=== PATIENT | male | born 1950 | race American Indian/Alaskan Native ===

== ENCOUNTER 2022-08-05 09:54 | Inpatient (IN) | payer MEDICARE ==
[~2022-08-05] VITALS: Ht 177.8 cm; Wt 104.2 kg
[~2022-08-05 09:54] MED LIST: ECOT81TA5 PO; HEPARIN SOD (PORCINE) 5000UNITS/ML 1ML VIAL/SYRINGE SQ ONE; LIDOCAINE 2% 100MG/5ML SDV (FOR ANES.) As Ordered ONE; LISI40TA4 PO; MIDAZOLAM INJ 2MG/2ML VIAL (J2250 PER 1MG) As Ordered ONE; ONDANSETRON 4MG 2ML VIAL As Ordered ONE; ROCURONIUM BROMIDE 50 MG/5 ML VIAL As Ordered ONE; SEMA1PEN2 SQ; STOO240C PO; TAMS1CAP17 PO; ceFAZolin SOD 2 GM in IV 1 EA IV ONE; dexameTHASONE 4 MG/ML 1ML VIAL (J1100 PER 1MG) As Ordered ONE; fentaNYL 100 MCG/2 ML INJECTION As Ordered ONE; propofoL 200 MG/20 ML VIAL As Ordered ONE
[2022-08-05] MEDS ORDERED: LR 1,000 ML IV SCH ×2 (10:20→17:40)
[2022-08-05] MEDS ORDERED: SUGAMMADEX SODIUM 500 MG/5 ML VIAL (BRIDION) As Ordered ONE (11:04)
[2022-08-05] MEDS ORDERED: ACETAMINOPHEN TAB 650MG DOSE (2X325MG) PO PRN (12:00)
[2022-08-05] MEDS ORDERED: GLUCAGON INJ 1MG VIAL SC PRN (12:00)
[2022-08-05] MEDS ORDERED: GLUCOSE 4GM CHEW TABLET PO PRN (12:00)
[2022-08-05] MEDS ORDERED: DEXTROSE 50% 50 ML SYRINGE IV PRN (12:00)
[2022-08-05] MEDS: INSULIN LISPRO (NovoLOG) PER UNIT SC SCH ×2 (12:00→17:30)
[2022-08-05] MEDS ORDERED: ONDANSETRON 4MG 2ML VIAL IV PRN ×2 (12:00→17:40)
[2022-08-05] MEDS ORDERED: NS 1,000 ML IV SCH (12:00)
[2022-08-05] MEDS ORDERED: PERCOCET 5MG/325MG TAB PO PRN ×2 (12:00)
[2022-08-05] MEDS ORDERED: LIDOCAINE 1% SDV 30ML VIAL As Ordered ONE (12:00)
[2022-08-05] MEDS ORDERED: BUPIVACAINE HCL 0.25% 30ML VIAL As Ordered ONE (12:00)
[2022-08-05] MEDS ORDERED: fentaNYL 100 MCG/2 ML INJECTION As Ordered ONE ×2 (13:08→17:05)
[2022-08-05] MEDS ORDERED: VECURONIUM BROMIDE 10MG VIAL As Ordered ONE (13:25)
[2022-08-05] MEDS ORDERED: propofoL 200 MG/20 ML VIAL As Ordered ONE ×2 (15:21→16:49)
[2022-08-05] MEDS ORDERED: LIDOCAINE 2% 100MG/5ML SDV (FOR ANES.) As Ordered ONE (15:28)
[2022-08-05] MEDS ORDERED: ACETAMINOPHEN 1000MG 100ML IV BTL (OFIRMEV) (J0131 PER 10MG) As Ordered ONE (17:06)
[2022-08-05] MEDS ORDERED: MEPERIDINE INJ 25 MG/ML VIAL (J2175) IV PRN (17:40)
[2022-08-05] MEDS ORDERED: fentaNYL 100 MCG/2 ML INJECTION IV PRN (17:40)
[2022-08-05] MEDS: oxyCODONE 5MG TAB PO PRN ×2 (18:14→18:51)
[2022-08-05 18:31] LABS: HEMATOCRIT 38.2 % (42.0-52.0); MEAN CORPUSCULAR HEMOGLOBIN 31.6 pg (27.0-33.0); MEAN CORPUSCULAR VOLUME 92.9 fl (80.0-96.0); PLATELET COUNT, AUTOMATED 175 10^3/uL (150-450); RED BLOOD COUNT 4.11 10^6/uL (4.30-6.10); WHITE BLOOD COUNT 11.6 10^3/uL (4.0-10.0)
[2022-08-05 19:11] LABS: CALCIUM LEVEL 8.7 MG/DL (8.8-10.2); CREATININE FOR GFR 1.34 MG/DL (0.70-1.30); GLOMERULAR FILTRATION RATE 55.9 (>42); POTASSIUM SERUM 4.8 MEQ/L (3.5-5.1)
[2022-08-05 19:37] VITALS: BP 140/74
[2022-08-05 20:07] VITALS: BP 136/73
[2022-08-05] MEDS: DOCUSATE SODIUM 100MG CAPSULE PO SCH (20:29)
[2022-08-05] MEDS: ceFAZolin SOD 1 GM in D5W MINI-BAG PLUS 50 ML IV SCH (20:30)
[2022-08-05 20:37] VITALS: BP 133/71
[2022-08-05] MEDS ORDERED: INSULIN LISPRO (NovoLOG) PER UNIT SC SCH (21:00)
[2022-08-05] MEDS ORDERED: HOME MED LIST COMPLETE! XX SCH (21:15)
[2022-08-05 21:37] VITALS: BP 133/73
[2022-08-05] MEDS: HEPARIN SOD (PORCINE) 5000UNITS/ML 1ML VIAL/SYRINGE SC SCH (21:37)
[2022-08-05 22:37] VITALS: BP 127/73
[2022-08-05 23:37] VITALS: BP 124/73
[2022-08-06 01:37] VITALS: BP 118/70
[2022-08-06] MEDS: ceFAZolin SOD 1 GM in D5W MINI-BAG PLUS 50 ML IV SCH (04:27)
[2022-08-06] MEDS: HEPARIN SOD (PORCINE) 5000UNITS/ML 1ML VIAL/SYRINGE SC SCH (05:23)
[2022-08-06 05:52] VITALS: BP 129/77
[2022-08-06 06:16] LABS: HEMATOCRIT 36.5 % (42.0-52.0); HEMOGLOBIN 12.4 g/dl (13.5-17.5); MEAN CORPUSCULAR HEMOGLOBIN 31.3 pg (27.0-33.0); MEAN CORPUSCULAR VOLUME 92.2 fl (80.0-96.0); PLATELET COUNT, AUTOMATED 171 10^3/uL (150-450); RED BLOOD COUNT 3.96 10^6/uL (4.30-6.10); WHITE BLOOD COUNT 11.1 10^3/uL (4.0-10.0)
[2022-08-06 06:55] LABS: BLOOD UREA NITROGEN 25 MG/DL (7-18); CALCIUM LEVEL 8.3 MG/DL (8.8-10.2); CARBON DIOXIDE LEVEL 24 MEQ/L (21-32); CHLORIDE LEVEL 105 MEQ/L (98-107); CREATININE FOR GFR 1.24 MG/DL (0.70-1.30); GLOMERULAR FILTRATION RATE > 60.0 (>42); GLUCOSE, FASTING 93 MG/DL (70-100); POTASSIUM SERUM 4.1 MEQ/L (3.5-5.1); SODIUM LEVEL 137 MEQ/L (136-145)
[2022-08-06] MEDS: INSULIN LISPRO (NovoLOG) PER UNIT SC SCH ×2 (07:30→12:00)
[2022-08-06] MEDS ORDERED: lisinopriL 40MG TAB PO SCH (09:00)
[2022-08-06] MEDS: DOCUSATE SODIUM 100MG CAPSULE PO SCH (09:30)
[2022-08-06 10:00] VITALS: BP 115/71
[2022-08-06 14:00] VITALS: BP 141/79
[2022-08-06] MEDS ORDERED: BACT800T5 PO (14:32)
[2022-08-06] MEDS ORDERED: PERCOCET PO (14:32)
[2022-08-06] MEDS ORDERED: COLA100C5 PO (14:32)
== END 2022-08-06 15:01 | disposition home or self-care (01) | DRG 708 ==
LOC: M OR 09:54 → M MSPAV 19:31
PROVIDERS: ADMIT Urology; ATTEND Urology
PROC: 07TC4ZZ Resection of Pelvis Lymphatic, Percutaneous Endoscopic Approach (ICD-10-PCS; 2022-08-05)
PROC: 8E0W4CZ Robotic Assisted Procedure of Trunk Region, Percutaneous Endoscopic Approach (ICD-10-PCS; 2022-08-05)
PROC: 0VT04ZZ Resection of Prostate, Percutaneous Endoscopic Approach (ICD-10-PCS; principal; 2022-08-05 11:45)
DX: C61 Malignant neoplasm of prostate (principal); Z79.82 Long term (current) use of aspirin; Z79.899 Other long term (current) drug therapy; I10 Essential (primary) hypertension; E66.9 Obesity, unspecified; E11.9 Type 2 diabetes mellitus without complications; E78.5 Hyperlipidemia, unspecified; Z68.35 Body mass index [BMI] 35.0-35.9, adult